=== PATIENT | female | born 1985 | race Caucasian/White ===

== ENCOUNTER 2016-11-28 11:03 | Inpatient (IN) | payer OTHER ==
[2016-11-28] MEDS ORDERED: IPRATROPIUM/ALBUTEROL 3 ML NEB INH STA (11:38)
[2016-11-28] MEDS ORDERED: IPRATROPIUM/ALBUTEROL 3 ML NEB INH ONE (11:39)
[2016-11-28] MEDS ORDERED: ALBUTEROL NEB 2.5 MG/3 ML INH STA (12:15)
[2016-11-28] MEDS ORDERED: guaiFENesin/CODEINE 5 ML UDC PO STA (12:15)
[2016-11-28] MEDS ORDERED: DEXAMETHASONE 10 MG/ML VIAL PO STA (12:15)
[2016-11-28] MEDS ORDERED: CHERRY SYRUP 10 ML UDC PO ONE (12:18)
[2016-11-28] MEDS ORDERED: guaiFENesin/CODEINE 5 ML UDC ONE (12:18)
[2016-11-28] MEDS ORDERED: DEXAMETHASONE 10 MG/ML VIAL ONE (12:19)
[2016-11-28] MEDS ORDERED: ALBUTEROL NEB 2.5 MG/3 ML INH ONE (12:33)
[2016-11-28] MEDS ORDERED: LORazepam 0.5 MG TABLET PO STA (13:20)
[2016-11-28] MEDS ORDERED: LEVALBUTEROL 1.25 MG INH STA ×2 (13:20→14:01)
[2016-11-28] MEDS ORDERED: LEVALBUTEROL 1.25 MG INH ONE ×2 (13:25→14:07)
[2016-11-28] MEDS ORDERED: SODIUM CHLORIDE INHALATION 3 ML NEB ONE (13:25)
[2016-11-28] MEDS ORDERED: LORazepam 0.5 MG TABLET ONE (13:26)
[2016-11-28] MEDS ORDERED: ACETAMINOPHEN 325 MG TABLET PO STA (14:01)
[2016-11-28] MEDS ORDERED: ACETAMINOPHEN 325 MG TABLET PO ONE (14:03)
[2016-11-28] MEDS ORDERED: ONDANSETRON 4 MG/2 ML VIAL IVP PRN (14:34)
[2016-11-28] MEDS ORDERED: ACETAMINOPHEN 325 MG TABLET PO PRN (14:34)
[2016-11-28] MEDS ORDERED: ALBUTEROL NEB 2.5 MG/3 ML INH PRN ×2 (14:34→20:19)
[2016-11-28] MEDS ORDERED: SODIUM CHLORIDE FLUSH 0.9% 10 ML SYRINGE IVP PRN (14:34)
[2016-11-28] MEDS ORDERED: TEMAZEPAM 15 MG CAPSULE PO PRN (14:34)
[2016-11-28] MEDS ORDERED: methylPREDNISolone SUCCINATE 40 MG/ML VIAL IVP ONE (16:30)
[2016-11-28] MEDS: cefTRIAXone 2 GM in SODIUM CHLORIDE 0.9% MINIBAG 100 ML IV SCH (16:47)
[2016-11-28] MEDS: SODIUM CHLORIDE 0.9% 1,000 ML IV SCH (16:47)
[2016-11-28] MEDS: SACCHAROMYCES BOULARDII 250 MG CAPSULE PO SCH (16:48)
[2016-11-28] MEDS: HYDROcod/ACETAM 5/325 MG TABLET PO PRN (17:55)
[2016-11-28] MEDS: IPRATROPIUM/ALBUTEROL 3 ML NEB INH PRN ×2 (18:00→21:15)
[2016-11-28] MEDS ORDERED: MAGNESIUM SULFATE 5 GM/10 ML VIAL IV STA (20:18)
[2016-11-28] MEDS: guaiFENesin/CODEINE 5 ML UDC PO PRN (20:38)
[2016-11-28] MEDS ORDERED: MAGNESIUM SULFATE 2 GRAM 50 ML IV SCH (21:00)
[2016-11-28] MEDS: methylPREDNISolone SUCCINATE 40 MG/ML VIAL IVP SCH (21:40)
[2016-11-28] MEDS: SODIUM CHLORIDE FLUSH 0.9% 10 ML SYRINGE IVP SCH (21:41)
[2016-11-28] MEDS ORDERED: NEUTRA-PHOS 250 MG TABLET PO SCH (22:00)
[2016-11-28] MEDS: LORazepam 2 MG/ML SYRINGE IVP PRN (23:00)
[2016-11-29] MEDS: SODIUM CHLORIDE 0.9% 1,000 ML IV SCH ×4 (04:25→21:30)
[2016-11-29] MEDS: SODIUM CHLORIDE FLUSH 0.9% 10 ML SYRINGE IVP SCH ×3 (04:29→21:50)
[2016-11-29] MEDS: BENZONATATE 100 MG CAPSULE PO PRN ×2 (04:59→10:29)
[2016-11-29] MEDS: HYDROcod/ACETAM 5/325 MG TABLET PO PRN ×2 (04:59→17:27)
[2016-11-29] MEDS: methylPREDNISolone SUCCINATE 40 MG/ML VIAL IVP SCH ×3 (05:48→21:45)
[2016-11-29] MEDS: LORazepam 2 MG/ML SYRINGE IVP PRN (06:14)
[2016-11-29] MEDS: guaiFENesin/CODEINE 5 ML UDC PO PRN ×2 (06:14→18:55)
[2016-11-29] MEDS: LEVALBUTEROL 1.25 MG INH PRN ×4 (08:20→20:45)
[2016-11-29] MEDS: BUDESONIDE 0.5 MG/2 ML NEB INH SCH ×2 (08:20→20:45)
[2016-11-29] MEDS: SODIUM CHLORIDE INHALATION 3 ML NEB INH PRN ×2 (08:20→15:11)
[2016-11-29] MEDS: ENOXAPARIN 40 MG/0.4 ML SYRINGE SUBQ SCH (09:22)
[2016-11-29] MEDS: guaiFENesin 600 MG TABLET PO SCH ×2 (09:22→21:45)
[2016-11-29] MEDS: SACCHAROMYCES BOULARDII 250 MG CAPSULE PO SCH ×2 (09:23→17:23)
[2016-11-29] MEDS: POLYETHYLENE GLYCOL 3350 17 GM PACKET PO SCH (09:23)
[2016-11-29] MEDS: cefTRIAXone 2 GM in SODIUM CHLORIDE 0.9% MINIBAG 100 ML IV SCH (09:23)
[2016-11-29] MEDS: AZITHROMYCIN INJ 500 MG in SODIUM CHLORIDE 0.9% 250 ML IV SCH (10:44)
[2016-11-29] MEDS ORDERED: PROCHLORPERAZINE INJ 10 MG in SODIUM CHLORIDE 0.9% 50 ML IV SCH (20:32)
[2016-11-29] MEDS ORDERED: ACETAMINOPHEN 1,000 MG/100 ML 100 ML IV SCH (20:32)
[2016-11-30] MEDS: SODIUM CHLORIDE 0.9% 1,000 ML IV SCH (03:28)
[2016-11-30] MEDS: methylPREDNISolone SUCCINATE 40 MG/ML VIAL IVP SCH (06:17)
[2016-11-30] MEDS: SODIUM CHLORIDE FLUSH 0.9% 10 ML SYRINGE IVP SCH (06:20)
[2016-11-30] MEDS: BUDESONIDE 0.5 MG/2 ML NEB INH SCH (07:30)
[2016-11-30] MEDS: LEVALBUTEROL 1.25 MG INH PRN (07:30)
[2016-11-30] MEDS: POLYETHYLENE GLYCOL 3350 17 GM PACKET PO SCH (07:53)
[2016-11-30] MEDS: SACCHAROMYCES BOULARDII 250 MG CAPSULE PO SCH (07:53)
[2016-11-30] MEDS: ENOXAPARIN 40 MG/0.4 ML SYRINGE SUBQ SCH (07:53)
[2016-11-30] MEDS: guaiFENesin 600 MG TABLET PO SCH (07:53)
[2016-11-30] MEDS: cefTRIAXone 2 GM in SODIUM CHLORIDE 0.9% MINIBAG 100 ML IV SCH (07:53)
[2016-11-30] MEDS ORDERED: DOCUSATE SODIUM 250 MG CAPSULE PO SCH (10:00)
[2016-11-30] MEDS ORDERED: SENNA 8.6 MG TABLET PO SCH (10:00)
[2016-11-30] MEDS: AZITHROMYCIN INJ 500 MG in SODIUM CHLORIDE 0.9% 250 ML IV SCH (10:17)
== END 2016-11-30 12:05 | disposition home or self-care (01) | DRG 194 ==
DX: J18.1 Lobar pneumonia, unspecified organism (principal); J45.901 Unspecified asthma with (acute) exacerbation; I10 Essential (primary) hypertension

== ENCOUNTER 2017-07-24 09:08 | Emergency (ER) | payer OTHER ==
[2017-07-24 09:52] LABS: BILIRUBIN,URINE NEGATIVE (NEGATIVE)
[2017-07-24 10:06] LABS: UA w/ MICROSCOPIC CHARGE YES; WBC,URINE >25 /HPF (0-5)
[2017-07-24 10:07] LABS: UR CULTURE IF IND INDICATED
[2017-07-24 10:29] LABS: HCG UR QUAL NEGATIVE
[2017-07-24] MEDS ORDERED: cefTRIAXone 1 GM VIAL IM STA (11:03)
[2017-07-24] MEDS ORDERED: KETOROLAC 60 MG/2 ML VIAL IM STA (11:03)
[2017-07-24] MEDS ORDERED: LIDOCAINE 1% 2 ML VIAL ONE (11:17)
[2017-07-24] MEDS ORDERED: KETOROLAC 60 MG/2 ML VIAL ONE (11:17)
[2017-07-24] MEDS ORDERED: cefTRIAXone 1 GM VIAL ONE (11:17)
--- NOTE | 2017-07-24 11:17 | ED Physician Documentation ---
PD HPI FEMALE - Stated complaint Stated Complaint: BACK PX/FEMALE - Chief complaint Chief Complaint: Back Pain - History obtained from History obtained from: Patient - History of Present Illness Timing - onset: How many days ago (3) Timing - duration: Days (3) Timing - details: Gradual onset, Still present Associated symptoms: Fever, Abdominal pain, Back pain, Dysuria, Urinary frequency Contributing factors: No: Similar symptoms before: Has not had sx before Recently seen: Not recently seen - Additional information Additional information: 32-year-old normally healthy female Has developed symptoms of urinary urgency and frequency and back pain. The back pain has gotten worse over the past 2 days she was not able to sleep last night. She has developed some nausea has not had vomiting Review of Systems Constitutional: denies: Fever, Chills Eyes: denies: Decreased vision Ears: denies: Ear pain Nose: denies: Congestion Throat: denies: Sore throat Cardiac: denies: Chest pain / pressure, Palpitations Respiratory: denies: Dyspnea, Cough GI: reports: Abdominal Pain, Nausea. denies: Vomiting, Constipation, Diarrhea : reports: Dysuria, Frequency Skin: denies: Rash Musculoskeletal: reports: Back pain. denies: Neck pain, Extremity pain PD PAST MEDICAL HISTORY - Past Medical History Cardiovascular: Hypertension, Other Respiratory: Pneumonia Neuro: None Endocrine/Autoimmune: None GI: None : None HEENT: None Psych: None Musculoskeletal: None Derm: None - Past Surgical History Past Surgical History: Yes Ortho: Other HEENT: Other - Present Medications Home Medications: Ambulatory Orders Medication Instructions Recorded Confirmed Amoxicillin [Amoxil] 500 mg PO Q12H #10 capsule 11/30/16 Azithromycin 250 mg PO DAILY #4 tablet 11/30/16 Methylprednisolone [Medrol] 4 mg PO UD #1 11/30/16 guaiFENesin/CODEINE [Robitussin AC] 5 ml PO Q6HR PRN #120 udc 11/30/16 HYDROcod/ACETAM 5/325 [[place] 5/325] 1 - 2 ea PO Q6H PRN #15 tablet 07/24/17 Phenazopyridine HCl [Pyridium] 200 mg PO Q6HR PRN #12 tablet 07/24/17 Sulfamethoxazole/Trimethoprim 1 each PO BID #14 tablet 07/24/17 [Sulfamethoxazole-Tmp Ds Tablet] - Allergies Allergies/Adverse Reactions: Allergies Allergy/AdvReac Type Severity Reaction Status Date / Time No Known Drug Allergies Allergy Verified 03/22/13 09:35 - Social History Does the pt smoke?: No Smoking Status: Never smoker Does the pt drink ETOH?: No Does the pt have substance abuse?: No PD ED PE NORMAL - Vitals Vital signs reviewed: Yes (Hypertensive) - General General: Alert and oriented X 3, No acute distress, Well developed/nourished - HEENT HEENT: Atraumatic, PERRL - Neck Neck: Supple, no meningeal sign - Cardiac Cardiac: RRR, No murmur - Respiratory Respiratory: No respiratory distress, Clear bilaterally - Abdomen Abdomen: Soft, Other (There is some right and left upper quadrant tenderness to bimanual palpation of either kidney.) - Back Back: No spinal TTP, Other (bilateral CVA tenderness worse on the right. ) - Derm Derm: Normal color, Warm and dry, No rash - Extremities Extremities: No deformity, No edema - Neuro Neuro: Alert and oriented X 3, No motor deficit, No sensory deficit, Normal speech - Psych Psych: Normal mood, Normal affect Results - Vitals Vitals: Vital Signs - 24 hr 07/24/17 09:21 Temperature 36.1 C L Heart Rate 68 Respiratory 16 Rate Blood Pressure 141/92 H O2 Saturation 99 Oxygen O2 Source Room air - Labs Labs: Laboratory Tests 07/24/17 07/24/17 09:24 10:05 Urine Color DARK YELLOW Urine Clarity HAZY Urine pH 6.0 Ur Specific [place] 1.010 1.010 Urine Protein TRACE Urine Glucose (UA) NEGATIVE Urine Ketones NEGATIVE Urine Occult Blood MODERATE H Urine Nitrite POSITIVE H Urine Bilirubin NEGATIVE Urine Urobilinogen 0.2 (NORMAL) Ur Leukocyte Esterase MODERATE H Urine RBC 6-10 H Urine WBC >25 H Urine WBC Clumps PRESENT Ur Squamous Epith Cells NONE SEEN Urine Bacteria Many H Ur Microscopic Review INDICATED Urine Culture Comments INDICATED Urine HCG, Qual NEGATIVE PD MEDICAL DECISION MAKING - ED course Complexity details: considered differential, d/w patient ED course: 32-year-old female with acute pyelonephritis with back pain and nausea urinary symptoms and white cells in her urine is given Rocephin 1 g IM. We have given her Toradol 60 mg IM as well for pain control. Departure - Departure Disposition: 01 Home, Self Care Clinical Impression: Pyelonephritis Condition: Stable Instructions: ED Kidney Infec Female Follow-Up: Soren Lomeli ARNP [Primary Care Provider] - Prescriptions: Phenazopyridine HCl [Pyridium] 200 mg PO Q6HR PRN #12 tablet PRN Reason: bladder symptoms HYDROcod/ACETAM 5/325 [[place] 5/325] 1 - 2 ea PO Q6H PRN #15 tablet PRN Reason: Pain Sulfamethoxazole/Trimethoprim [Sulfamethoxazole-Tmp Ds Tablet] 1 each PO BID # 14 tablet Comments: Today in the Emergency Department your blood pressure was elevated. This can happen from the stress of the visit itself, from a current illness or circumstance or from uncontrolled hypertension. If you take blood pressure medications take your usual mediations, have your blood pressure re-checked in an appropriate setting and follow up any elevation with your primary care doctor. Forms: Activity restrictions
[2017-07-24 11:36] VITALS: BP 124/84
== END 2017-07-24 11:36 | disposition home or self-care (01) ==
LOC: ED 09:08
DX: N12 Tubulo-interstitial nephritis, not specified as acute or chronic (principal); I10 Essential (primary) hypertension
CPT/HCPCS: 81001; 81003; 81025; 87086; 96372; 99283

== ENCOUNTER 2017-07-26 19:00 | Emergency (ER) | payer OTHER ==
[2017-07-26 20:24] LABS: BILIRUBIN,URINE NEGATIVE (NEGATIVE)
[2017-07-26 20:26] LABS: HCG UR QUAL NEGATIVE; UA w/ MICROSCOPIC CHARGE YES
[2017-07-26 20:33] LABS: UR CULTURE IF IND INDICATED; WBC,URINE 0-3 /HPF (0-5)
[2017-07-26] MEDS ORDERED: ONDANSETRON ODT 4 MG TABLET TL STA (21:11)
[2017-07-26] MEDS ORDERED: CIPROFLOXACIN 250 MG TABLET PO STA (21:11)
--- NOTE | 2017-07-26 21:17 | ED Physician Documentation ---
PD HPI FEMALE - Stated complaint Stated Complaint: ABD/BACK PAIN - Chief complaint Chief Complaint: Abd Pain - History obtained from History obtained from: Patient - History of Present Illness Timing - onset: How many days ago (3) Timing - details: Gradual onset, Still present Associated symptoms: Abdominal pain, Back pain, Dysuria, Urinary frequency, Hematuria. No: Fever, Vaginal pain, Vaginal bleeding Similar symptoms before: Work up / diagnostics, Treatment Recently seen: Emergency Dept - Additional information Additional information: Patient is a 32 year old female with no significant past medical history who is presenting to the emergency department for bilateral flank pain. patient was seen three days prior and diagnosed with a urinary tract infection. patient states that she has been taking her antibiotics but her symptoms have been becoming progressively worse. Patient denies nausea, vomiting, fever or chills. Review of Systems Constitutional: denies: Fever, Chills Eyes: denies: Decreased vision Ears: denies: Ear pain, Drainage/discharge Nose: denies: Congestion Throat: reports: Reviewed and negative Cardiac: denies: Chest pain / pressure Respiratory: denies: Dyspnea, Cough GI: reports: Abdominal Pain. denies: Nausea, Vomiting, Constipation, Diarrhea : denies: Dysuria, Frequency, Hematuria, Discharge, Vaginal bleeding Skin: denies: Rash, Lesions Musculoskeletal: reports: Back pain. denies: Extremity pain, Joint pain Neurologic: denies: Generalized weakness, Focal weakness, Numbness Immunocompromised: denies: Immunocompromised PD PAST MEDICAL HISTORY - Past Medical History Cardiovascular: Hypertension, Other Respiratory: Pneumonia Neuro: None Endocrine/Autoimmune: None GI: None : None HEENT: None Psych: None Musculoskeletal: None Derm: None - Past Surgical History Past Surgical History: Yes Ortho: Other HEENT: Other - Present Medications Home Medications: Ambulatory Orders Medication Instructions Recorded Confirmed Amoxicillin [Amoxil] 500 mg PO Q12H #10 capsule 11/30/16 Azithromycin 250 mg PO DAILY #4 tablet 11/30/16 Methylprednisolone [Medrol] 4 mg PO UD #1 11/30/16 guaiFENesin/CODEINE [Robitussin AC] 5 ml PO Q6HR PRN #120 udc 11/30/16 HYDROcod/ACETAM 5/325 [[place] 5/325] 1 - 2 ea PO Q6H PRN #15 tablet 07/24/17 Phenazopyridine HCl [Pyridium] 200 mg PO Q6HR PRN #12 tablet 07/24/17 Sulfamethoxazole/Trimethoprim 1 each PO BID #14 tablet 07/24/17 [Sulfamethoxazole-Tmp Ds Tablet] Ciprofloxacin HCl [Cipro] 500 mg PO BID #14 tablet 07/26/17 Ondansetron Odt [Zofran] 4 mg TL Q6H PRN #14 tablet 07/26/17 - Allergies Allergies/Adverse Reactions: Allergies Allergy/AdvReac Type Severity Reaction Status Date / Time No Known Drug Allergies Allergy Verified 07/26/17 19:12 - Social History Does the pt smoke?: No Smoking Status: Never smoker Does the pt drink ETOH?: No Does the pt have substance abuse?: No PD ED PE NORMAL - Vitals Vital signs reviewed: Yes - General General: Alert and oriented X 3, No acute distress - HEENT HEENT: Atraumatic, PERRL - Neck Neck: Supple, no meningeal sign - Cardiac Cardiac: RRR, No murmur - Respiratory Respiratory: No respiratory distress, Clear bilaterally - Abdomen Abdomen: Soft - Derm Derm: Normal color, Warm and dry, No rash - Extremities Extremities: No deformity - Neuro Neuro: Alert and oriented X 3, No motor deficit, No sensory deficit - Psych Psych: Normal mood, Normal affect PD ED PE EXPANDED - Abdomen Abdomen: Tender to palpation, Suprapubic. No: Rebound, Guarding - Back Back: CVA TTP right, CVA TTP left Results - Vitals Vitals: Vital Signs - 24 hr 07/26/17 19:09 Temperature 36.8 C Heart Rate 69 Respiratory 18 Rate Blood Pressure 168/98 H O2 Saturation 100 Oxygen O2 Source Room air - Labs Labs: Laboratory Tests 07/26/17 19:50 Urine Color YELLOW Urine Clarity HAZY Urine pH 6.0 Ur Specific [place] 1.010 Urine Protein NEGATIVE Urine Glucose (UA) NEGATIVE Urine Ketones NEGATIVE Urine Occult Blood MODERATE H Urine Nitrite POSITIVE H Urine Bilirubin NEGATIVE Urine Urobilinogen 0.2 (NORMAL) Ur Leukocyte Esterase NEGATIVE Urine RBC 11-25 H Urine WBC 0-3 Ur Squamous Epith Cells NONE SEEN Urine Bacteria Rare Ur Microscopic Review INDICATED Urine Culture Comments INDICATED Urine HCG, Qual NEGATIVE PD MEDICAL DECISION MAKING - ED course Complexity details: reviewed old records, reviewed results, re-evaluated patient , considered differential, d/w patient ED course: Sukh was seen and examined at bedside. urine was collected and sent. Patient's previous results were reviewed. Patient's urine was susceptible to bactrim but patient wasn't responding. patient was switched to cipro. Patient was able to tolerate PO without difficulty and was stable for outpatient work up. Departure - Departure Disposition: 01 Home, Self Care Clinical Impression: Pyelonephritis Condition: Good Instructions: Pyelonephritis Dc Follow-Up: Soren Lomeli ARNP [Primary Care Provider] - Within 3 Days Prescriptions: Ciprofloxacin HCl [Cipro] 500 mg PO BID #14 tablet Ondansetron Odt [Zofran] 4 mg TL Q6H PRN #14 tablet PRN Reason: Nausea / Vomiting Comments: Your symptoms today are being caused by a kindey infection. Your antibiotic has been switched. You will need to be on it for the next week. You should take zofran as needed for nausea and make sure you stay well hydrated. YOu should follow up with your doctor this week. You may return to the emergency department at any time for new, worsening or uncontrollable symptoms. Forms: Activity restrictions
[2017-07-26 21:25] VITALS: BP 153/95
[2017-07-26] MEDS ORDERED: ONDANSETRON ODT 4 MG TABLET ONE (21:25)
[2017-07-26] MEDS ORDERED: CIPROFLOXACIN 250 MG TABLET PO ONE (21:25)
== END 2017-07-26 21:35 | disposition home or self-care (01) ==
LOC: ED 19:00
DX: N12 Tubulo-interstitial nephritis, not specified as acute or chronic (principal); I10 Essential (primary) hypertension
CPT/HCPCS: 81001; 81025; 87086; 99283; A9270; Q0162; 81003

== ENCOUNTER 2018-05-17 17:37 | Emergency (ER) | payer OTHER ==
[2018-05-17 20:33] VITALS: BP 143/96
[2018-05-17 21:32] LABS: BILIRUBIN,URINE NEGATIVE (NEGATIVE); GLUCOSE, URINE (UA) NEGATIVE (NEGATIVE); KETONES,URINE (UA) 15 mg/dL (NEGATIVE); LEUKOCYTE ESTERASE, URINE NEGATIVE (NEGATIVE); NITRITE,URINE NEGATIVE (NEGATIVE); OCCULT BLOOD,URINE NEGATIVE (NEGATIVE); PROTEIN,URINE NEGATIVE (NEGATIVE); UROBILINOGEN,URINE 0.2 (NORMAL) E.U./dL (NORMAL)
[2018-05-17 21:35] LABS: CLARITY,URINE CLEAR (CLEAR); HCG UR QUAL NEGATIVE
--- NOTE | 2018-05-17 21:49 | ED Physician Documentation ---
History of Present Illness - Stated complaint Stated Complaint: FEMALE - Chief complaint Chief Complaint: General - History obtained from History obtained from: Patient, Family - History of Present Illness Timing: Today Pain level max: 0 Pain level now: 0 Improved by: nothing Worsened by: nothing - Additonal information Additional information: Patient is a 33-year-old female who states that she noticed a hard lump coming out of her vagina today. Denies any other symptoms. Also states she has been urinating more frequently. No dysuria however. No fevers. No vaginal discharge. Has had several children in the past. Review of Systems Constitutional: denies: Fever, Chills GI: denies: Vomiting : reports: Frequency. denies: Dysuria, Hesitancy, Now EGA Skin: denies: Rash Musculoskeletal: denies: Neck pain, Back pain Neurologic: denies: Headache PD PAST MEDICAL HISTORY - Past Medical History Past Medical History: Yes Cardiovascular: Hypertension, Other Respiratory: Pneumonia Endocrine/Autoimmune: None GI: None : None HEENT: None Psych: None Musculoskeletal: None Derm: None - Past Surgical History Past Surgical History: Yes Ortho: Other HEENT: Other - Present Medications Home Medications: Ambulatory Orders Medication Instructions Recorded Confirmed Amoxicillin [Amoxil] 500 mg PO Q12H #10 capsule 11/30/16 Azithromycin 250 mg PO DAILY #4 tablet 11/30/16 Methylprednisolone [Medrol] 4 mg PO UD #1 11/30/16 guaiFENesin/CODEINE [Robitussin AC] 5 ml PO Q6HR PRN #120 udc 11/30/16 HYDROcod/ACETAM 5/325 [[place] 5/325] 1 - 2 ea PO Q6H PRN #15 tablet 07/24/17 Phenazopyridine HCl [Pyridium] 200 mg PO Q6HR PRN #12 tablet 07/24/17 Sulfamethoxazole/Trimethoprim 1 each PO BID #14 tablet 07/24/17 [Sulfamethoxazole-Tmp Ds Tablet] Ciprofloxacin HCl [Cipro] 500 mg PO BID #14 tablet 07/26/17 Ondansetron Odt [Zofran] 4 mg TL Q6H PRN #14 tablet 07/26/17 - Allergies Allergies/Adverse Reactions: Allergies Allergy/AdvReac Type Severity Reaction Status Date / Time No Known Drug Allergies Allergy Verified 07/26/17 19:12 - Social History Does the pt smoke?: No Smoking Status: Never smoker Does the pt drink ETOH?: No Does the pt have substance abuse?: No PD ED PE NORMAL - Vitals Vital signs reviewed: Yes - General General: Alert and oriented X 3, No acute distress - HEENT HEENT: Moist mucous membranes - Neck Neck: Supple, no meningeal sign - Cardiac Cardiac: RRR - Respiratory Respiratory: No respiratory distress, Clear bilaterally - Abdomen Abdomen: Soft, Non tender, Non distended - Female Female : Envelope Adjuster present (Reyna Momin RN), Other (3cm area of prolapsed tissue , near the urethral meatus. appears to be bladder, not cervix. no redness, swelling, drainage. ) - Derm Derm: Warm and dry - Neuro Neuro: Alert and oriented X 3 Results - Vitals Vitals: Vital Signs - 24 hr 05/17/18 05/17/18 05/17/18 17:42 20:33 21:58 Temperature 36.3 C L 37.1 C Heart Rate 66 68 70 Respiratory 16 17 17 Rate Blood Pressure 152/90 H 143/96 H 143/96 H O2 Saturation 100 100 100 Oxygen O2 Source Room air - Labs Labs: Laboratory Tests 05/17/18 21:25 Urine Color YELLOW Urine Clarity CLEAR Urine pH 6.0 Ur Specific [place] 1.015 Urine Protein NEGATIVE Urine Glucose (UA) NEGATIVE Urine Ketones 15 H Urine Occult Blood NEGATIVE Urine Nitrite NEGATIVE Urine Bilirubin NEGATIVE Urine Urobilinogen 0.2 (NORMAL) Ur Leukocyte Esterase NEGATIVE Ur Microscopic Review NOT INDICATED Urine Culture Comments NOT INDICATED Urine HCG, Qual NEGATIVE PD MEDICAL DECISION MAKING - ED course Complexity details: reviewed results, considered differential, d/w patient ED course: Patient is a 33-year-old female who presents to the emergency department with what appears to be a prolapsed bladder. Will have her follow-up with gynecology for further evaluation and care. There is no uterine prolapse at this time. No current UTI. Patient counseled regarding signs and symptoms for which I believe and urgent re-evaluation would be necessary. Patient with good understanding of and agreement to plan and is comfortable going home at this time This document was made in part using voice recognition software. While efforts are made to proofread this document, sound alike and grammatical errors may occur. - Sepsis Event Vital Signs: Vital Signs - 24 hr 05/17/18 05/17/18 05/17/18 17:42 20:33 21:58 Temperature 36.3 C L 37.1 C Heart Rate 66 68 70 Respiratory 16 17 17 Rate Blood Pressure 152/90 H 143/96 H 143/96 H O2 Saturation 100 100 100 Oxygen O2 Source Room air Departure - Departure Disposition: 01 Home, Self Care Clinical Impression: Bladder prolapse Condition: Good Instructions: Cystocele Follow-Up: Esmer Armijo DO [Provider Admit Priv/Credential] - Soren Lomeli ARNP [Primary Care Provider] - Within 1 week Comments: Follow up with your doctor for further evaluation. Return if you worsen. Discharge Date/Time: 05/17/18 22:00
== END 2018-05-17 22:00 | disposition home or self-care (01) ==
LOC: ED 17:37
DX: N81.10 Cystocele, unspecified (principal)
CPT/HCPCS: 81001; 81003; 81025; 87086; 99283

== ENCOUNTER 2019-09-17 06:24 | Emergency (ER) | payer OTHER ==
[2019-09-17 06:44] LABS: BILIRUBIN,URINE NEGATIVE (NEGATIVE); GLUCOSE, URINE (UA) NEGATIVE (NEGATIVE); KETONES,URINE (UA) NEGATIVE (NEGATIVE); LEUKOCYTE ESTERASE, URINE LARGE (NEGATIVE); NITRITE,URINE NEGATIVE (NEGATIVE); OCCULT BLOOD,URINE LARGE (NEGATIVE); PROTEIN,URINE 100 mg/dL (NEGATIVE); UROBILINOGEN,URINE 0.2 (NORMAL) E.U./dL (NORMAL)
[2019-09-17 06:48] LABS: CLARITY,URINE CLOUDY (CLEAR); HCG UR QUAL NEGATIVE
[2019-09-17 06:55] LABS: BACTERIA,URINE Few /HPF (None Seen); SQUAMOUS EPITHELIAL CELL,UR FEW Squamous (<= Few)
--- NOTE | 2019-09-17 07:09 | ED Physician Documentation ---
History of Present Illness - Stated complaint Stated Complaint: LOW BACK/ABD PX - Chief complaint Chief Complaint: Abd Pain - Additonal information Additional information: This is a 34-year-old female presents with dysuria, suprapubic discomfort, and general malaise. This has been ongoing for several days but worsened this morning. Patient has not had a fever but did feel hot last night. She has some slight nausea from time to time but none right now. No vomiting. This feels like a UTI to her. Her discomfort starts in her lower abdomen and bilateral flanks. Discomfort is currently moderate in severity. Review of Systems Constitutional: denies: Fever : reports: Dysuria PD PAST MEDICAL HISTORY - Past Medical History Past Medical History: Yes Cardiovascular: Hypertension, Other Respiratory: Pneumonia Neuro: None Endocrine/Autoimmune: None GI: None PROGRAM THERAPIST: None : None HEENT: None Psych: None Musculoskeletal: None Derm: None - Past Surgical History Past Surgical History: Yes Ortho: Other HEENT: Other - Present Medications Home Medications: Ambulatory Orders Medication Instructions Recorded Confirmed Amoxicillin [Amoxil] 500 mg PO Q12H #10 capsule 11/30/16 Azithromycin 250 mg PO DAILY #4 tablet 11/30/16 Methylprednisolone [Medrol] 4 mg PO UD #1 11/30/16 guaiFENesin/CODEINE [Robitussin AC] 5 ml PO Q6HR PRN #120 udc 11/30/16 HYDROcod/ACETAM 5/325 [[place] 5/325] 1 - 2 ea PO Q6H PRN #15 tablet 07/24/17 Phenazopyridine HCl [Pyridium] 200 mg PO Q6HR PRN #12 tablet 07/24/17 Sulfamethoxazole/Trimethoprim 1 each PO BID #14 tablet 07/24/17 [Sulfamethoxazole-Tmp Ds Tablet] Ciprofloxacin HCl [Cipro] 500 mg PO BID #14 tablet 07/26/17 Ondansetron Odt [Zofran] 4 mg TL Q6H PRN #14 tablet 07/26/17 Cefdinir 300 mg PO BID #14 capsule 09/17/19 Ondansetron Odt [Zofran] 4 mg TL Q6H PRN #10 tablet 09/17/19 - Allergies Allergies/Adverse Reactions: Allergies Allergy/AdvReac Type Severity Reaction Status Date / Time No Known Drug Allergies Allergy Verified 09/17/19 06:28 - Social History Does the pt smoke?: No Smoking Status: Never smoker Does the pt drink ETOH?: No Does the pt have substance abuse?: No - Immunizations Immunizations are current?: No - POLST Patient has POLST: No PD ED PE NORMAL - Vitals Vital signs reviewed: Yes - General General: Alert and oriented X 3, No acute distress - HEENT HEENT: PERRL - Neck Neck: Supple, no meningeal sign - Cardiac Cardiac: RRR, No murmur - Respiratory Respiratory: No respiratory distress - Abdomen Abdomen: Soft, Non distended, Other (No CVA tenderness, Mild suprapubic tenderness to deep palpation) - Derm Derm: Warm and dry - Extremities Extremities: No deformity - Neuro Neuro: Alert and oriented X 3 - Psych Psych: Normal mood, Normal affect Results - Vitals Vitals: Vital Signs - 24 hr 09/17/19 09/17/19 06:28 08:09 Temperature 36.6 C 36.7 C Heart Rate 83 71 Respiratory 18 16 Rate Blood Pressure 136/93 H 139/96 H O2 Saturation 100 99 Oxygen O2 Source Room air - Labs Labs: Laboratory Tests 09/17/19 06:30 Urine Color YELLOW Urine Clarity CLOUDY Urine pH 6.0 Ur Specific [place] 1.025 Urine Protein 100 H Urine Glucose (UA) NEGATIVE Urine Ketones NEGATIVE Urine Occult Blood LARGE H Urine Nitrite NEGATIVE Urine Bilirubin NEGATIVE Urine Urobilinogen 0.2 (NORMAL) Ur Leukocyte Esterase LARGE H Urine RBC 6-10 H Urine WBC >25 H Ur Squamous Epith Cells FEW Squamous Urine Bacteria Few Ur Microscopic Review INDICATED Urine Culture Comments INDICATED Urine HCG, Qual NEGATIVE PD MEDICAL DECISION MAKING - ED course ED course: Patient presents with symptoms of a UTI, she is afebrile with unremarkable vital signs. She has no signs of pyelonephritis, she does not have CVA tenderness, vomiting, or fever. Her urine is positive for infection. She was given a dose of antibiotics here, Tylenol, and Toradol, and a course of Cefdinir. I discussed return precautions with worsening symptoms or not improving symptoms, and patient was discharged home. Departure - Departure Disposition: 01 Home, Self Care Clinical Impression: UTI (urinary tract infection) Qualifiers: Urinary tract infection type: site unspecified Hematuria presence: without hematuria Qualified Code(s): N39.0 - Urinary tract infection, site not specified Condition: Good Instructions: ED UTI Cystitis Female Follow-Up: Soren Lomeli ARNP [Primary Care Provider] - Prescriptions: Cefdinir 300 mg PO BID #14 capsule Ondansetron Odt [Zofran] 4 mg TL Q6H PRN #10 tablet PRN Reason: Nausea / Vomiting Comments: You appear to have a urinary tract infection. Please take the antibiotic as prescribed. You may take ibuprofen 600 mg every 6 hours as needed for pain, and Tylenol 650 mg every 6 hours as needed for pain. Return to the emergency department if you are developing fever despite antibiotics, persistent vomiting, or other concerning symptoms Discharge Date/Time: 09/17/19 08:12
[2019-09-17] MEDS ORDERED: cephALEXin 250 MG CAPSULE PO STA (07:32)
[2019-09-17] MEDS ORDERED: KETOROLAC 30 MG/ML VIAL IVP STA (07:33)
[2019-09-17] MEDS ORDERED: ACETAMINOPHEN 325 MG TABLET PO STA (07:33)
[2019-09-17 08:10] VITALS: BP 139/96
== END 2019-09-17 08:12 | disposition home or self-care (01) ==
LOC: ED 06:24
DX: N39.0 Urinary tract infection, site not specified (principal); I10 Essential (primary) hypertension
CPT/HCPCS: 81001; 81025; 87086; 96374; 99283; 99284; A9270; 81003